=== PATIENT | male | born 1975 | race Caucasian/White ===

== ENCOUNTER 2024-04-17 16:03 | Outpatient (CLI) | payer OTHER, SELFPAY ==
--- NOTE | ~2024-04-17 | XR_ITS ---
EXAMINATION: XR tibia fibula RT 2V DATE: 04/17/2024 16:23 INDICATION: Anterior right lower leg pain TECHNIQUE: AP and lateral views of the right tibia and fibula were obtained. COMPARISON: None. FINDINGS: Bone alignment is normal. No fracture. No cortical erosions or periosteal reaction. Profiled joint sp aces are normal. No ankle joint effusion. Soft tissues are unremarkable. IMPRESSION: 1. Negative right tibia/fibula radiographs. Reviewed, dictated and finalized at location B.
== END 2024-04-17 16:04 | disposition home or self-care (01) ==
LOC: CHSIMG 16:09
PROVIDERS: PCP Family Medicine; Visit Provider Family Medicine
DX: M79.604 Pain in right leg (principal)
CPT/HCPCS: 73590

== ENCOUNTER 2025-01-14 15:50 | Outpatient (RCR) | payer OTHER, SELFPAY ==
--- NOTE | 2025-01-14 17:14 | OPREHPOC ---
Outpatient Therapy Plan of Care This is a Multidisciplinary Plan of Care that may contain components documented by all disciplines (PT, OT, and ST.) PT Problem 1 PT Problem #1 Knowledge Deficit PT Goal 1 Goal / Goal Update Independent and complaint with HEP addressing R shoulder ROM and strength per protocol. Target Visit 2 PT Problem 2 PT Problem #2 Pain PT Goal 1 Goal / Goal Update Pt to report 0/10 pain at rest. Pt to report 4/10 pain at worst with movement. Target Visit 12 PT Problem 3 PT Problem #3 Impaired Range of Motion PT Goal 1 Goal / Goal Update Pt to reach full R shoulder PROM. Pt to reach 150 deg active R shoulder flexion without pain. Pt to reach 150 deg active R shoulder abduction without pain. Pt to reach behind the back to lumbar spine without pain. Target Visit 12 PT Problem 4 PT Problem #4 Impaired Strength PT Goal 1 Goal / Goal Update Pt to improve gross R shoulder strength to 4/5 or better to return to work full duty. Target Visit 12 PT Problem 5 PT Problem #5 Impaired Functional Mobility PT Goal 1 Goal / Goal Update Pt to report 20% or less perceived disability on Quick DASH. Pt to be able to fasten a belt without R shoulder pain. Target Visit 12
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
--- NOTE | 2025-01-19 18:02 | PCPTNOTE ---
On 01/19/25, the student, [Soraya Yang], provided care and completed [facility] documentation on this patient. I have reviewed the student's documentation and agree with the findings.
--- NOTE | 2025-02-15 18:04 | OPREHPOC ---
Outpatient Therapy Plan of Care This is a Multidisciplinary Plan of Care that may contain components documented by all disciplines (PT, OT, and ST.) PT Problem 1 PT Problem #1 Knowledge Deficit PT Goal 1 Goal / Goal Update Independent and complaint with HEP addressing R shoulder ROM and strength per protocol. Target Visit 2 Progress Met PT Problem 2 PT Problem #2 Pain PT Goal 1 Goal / Goal Update Pt to report 0/10 pain at rest. Pt to report 4/10 pain at worst with movement. Target Visit 12 Progress Met PT Problem 3 PT Problem #3 Impaired Range of Motion PT Goal 1 Goal / Goal Update Pt to reach full R shoulder PROM. -met Pt to reach 150 deg active R shoulder flexion without pain. -met Pt to reach 150 deg active R shoulder abduction without pain. -not met Pt to reach behind the back to lumbar spine without pain. -met Target Visit 12 Progress Partially Met PT Problem 4 PT Problem #4 Impaired Strength PT Goal 1 Goal / Goal Update Pt to improve gross R shoulder strength to 4/5 or better to return to work full duty. Target Visit 12 Progress Met PT Goal 2 Goal / Goal Update Pt to improve gross R shoulder strength to 5/5 without pain for safe return to work. Target Visit 20 PT Problem 5 PT Problem #5 Impaired Functional Mobility PT Goal 1 Goal / Goal Update Pt to report 20% or less perceived disability on Quick DASH. -met Pt to be able to fasten a belt without R shoulder pain. -met Target Visit 12 Progress Met
--- NOTE | 2025-02-15 18:04 | PTOPPROG ---
Assessment and note entered by Yuko Chu, PT Evaluation Information Assessment Status Progress ICD-10 Condition Codes (PT) Pain in right shoulder M25.511 Other ICD-10 Condition Codes ( S42.101D PT) Onset 12/06/24 Subjective Information Pt reports his shoulder has continued to get better with therapy. He reports he's pain-free most of the time but occasionally has 2/10 pain with new or unexpected movements. He reports he went fishing over the weekend and that reeling in his line was causing him some pain. He no longer has pain with putting on seatbelts. He goes back to see the doctor on Saturday. Assessment PT Clinical Summary Mr. Taylor has attended 10 skilled PT visits addressing R shoulder/scapular strength and ROM after scapula fracture. He has made good progress thus far in both his strength and ROM. He has met majority of his goals and new goals were added today addressing improved shoulder strength for safe return to full duty at work. He is currently under a 10lb wt restriction and returns to his doctor on Saturday. He will continue to benefit from skilled PT intervention to make further progress in his shoulder strength to stabilize the shoulder for functional and occupational activities. Plan of Care Interventions Electrical Stimulation,Hot Pack/Cold Pack,Manual Therapy,Neuro Re-education,Patient/Caregiver Education,Therapeutic Activities,Therapeutic Exercise,Self-Care/Home Management Other Interventions TPDN PT Services Indicated Yes Treatment Frequency and 2x/week for 10 visits (20 total) Duration These treatments will address the objective and functional deficits as defined above. The patient will be advanced safely and appropriately in order for the patient to progress towards his/her prior level of function. Additional exercises will be introduced and as well as a comprehensive home exercise program upon discharge, if needed, ?to ensure carryover of functional gains achieved in the clinic. This treatment plan has been reviewed and agreement upon by the patient.
--- NOTE | 2025-03-18 17:40 | OPREHPOC ---
Outpatient Therapy Plan of Care This is a Multidisciplinary Plan of Care that may contain components documented by all disciplines (PT, OT, and ST.) PT Problem 1 PT Problem #1 Knowledge Deficit PT Goal 1 Goal / Goal Update Independent and complaint with HEP addressing R shoulder ROM and strength per protocol. Target Visit 2 Progress Met PT Problem 2 PT Problem #2 Pain PT Goal 1 Goal / Goal Update Pt to report 0/10 pain at rest. Pt to report 4/10 pain at worst with movement. Target Visit 12 Progress Met PT Problem 3 PT Problem #3 Impaired Range of Motion PT Goal 1 Goal / Goal Update Pt to reach full R shoulder PROM. -met Pt to reach 150 deg active R shoulder flexion without pain. -met Pt to reach 150 deg active R shoulder abduction without pain. -met Pt to reach behind the back to lumbar spine without pain. -met Target Visit 12 Progress Met PT Problem 4 PT Problem #4 Impaired Strength PT Goal 1 Goal / Goal Update Pt to improve gross R shoulder strength to 4/5 or better to return to work full duty. Target Visit 12 Progress Met PT Goal 2 Goal / Goal Update Pt to improve gross R shoulder strength to 5/5 without pain for safe return to work. Target Visit 20 Progress Met PT Problem 5 PT Problem #5 Impaired Functional Mobility PT Goal 1 Goal / Goal Update Pt to report 20% or less perceived disability on Quick DASH. -met Pt to be able to fasten a belt without R shoulder pain. -met Target Visit 12 Progress Met
--- NOTE | 2025-03-18 17:40 | PTOPDC ---
Assessment and note entered by Lourdes Glass, PT Evaluation Information Assessment Status Discharge ICD-10 Condition Codes (PT) Pain in right shoulder M25.511 Other ICD-10 Condition Codes ( S42.101D PT) Onset 12/06/24 Subjective Information Juanjose reports his right shoulder is doing well. He has no pain in the right shoulder unless he takes it all the way overhead and leaves it there for a bit. He notes pain is only a 1/10 at that time. He has been working modified duty with restrictions of lifting 35# or less without difficulty. He will see his physician on 03/19/25 and thinks he will be released for full duty work. Reported Pain Level Pain Score 0: Self Report Assessment PT Clinical Summary Juanjose Taylor has attended 18 skilled PT visits addressing R shoulder/scapular strength and ROM after scapula fracture. He reports he is no longer having right shoulder pain except when he leaves his arm overhead for several minutes. He has been working modified duty with lifting restrictions of 35# without difficulty. He demonstrates full right shoulder PROM and functional right shoulder AROM in all planes. He also demonstrates full right shoulder strength and was able to lift 35# from floor to waist and waist to shoulder without pain as well as 10# overhead. He has met all goals . He will see his referring physician on 03/19/25. We are recommending discharge from skilled PT. Plan of Care PT Services Indicated No
== END 2025-03-18 20:00 | disposition home or self-care (01) ==
LOC: CHSPT 15:50
DX: S42.101D Fracture of unspecified part of scapula, right shoulder, subsequent encounter for fracture with routine healing (principal); M25.511 Pain in right shoulder
CPT/HCPCS: 97110; 97112; 97161; 97530; 97750

== ENCOUNTER 2025-04-28 15:28 | Outpatient (CLI) | payer OTHER, SELFPAY ==
--- NOTE | ~2025-04-28 | XR_ITS ---
EXAMINATION: XR ankle LT min 3V, 04/28/2025 15:40 CDT HISTORY: PAIN IN L ANKLE, LEG AND JOINTS COMPARISON: No comparisons available. Findings: Remote corticated fractures medial malleolus, no acute fracture is identified No significant degenerative changes. Soft tissues unremarkable. Impression: No acute fracture or malalignment. Reviewed, dictated and finalized at location P. Impression: No acute fracture or malalignment.
--- NOTE | ~2025-04-28 | XR_ITS ---
Corrected Report Corrected from RT to LT See bold title change. 05/07/2025 SAHUNNA/SJ This report was recreated on 05/07/2025. Original report was signed by Carroll Richardson M.D. on 04/28/2025 16:03 CDT XR tibia fibula LT 2V EXAMINATION: XR tibia fibula RT 2V, 04/28/2025 15:40 CDT HISTORY: PAIN IN L ANKLE, LEG AND JOINTS COMPARISON: No comparisons available. Findings: Nondisplaced fracture of the proximal fibula. No significant degenerative changes. Soft tissues unremarkable. Impression: Proximal fibular fracture Reviewed, dictated and finalized at location P. Impression: Proximal fibular fracture
--- OUTSIDE RECORDS SUMMARY | 2025-04-28 15:31 | XMS_ITS | Clinical Summary ---
Author Organization [facility] Address [facility] [place] [address] Care Team Providers Care Nuclear Scientist Name Role Phone Nicole Way [facility] Primary Care Provider [phone] Allergies No known active allergies Medications ranitidine 150 MG tablet Take 150 mg by mouth 2 (two) times daily. Active HYDROcodone-acet aminophen 5-325 MG tabletIndication s:Acute Pain < 3 Day Supply Take 1 tablet by mouth every 6 (six) hours as needed for Pain. Indications : Acute Pain < 3 Day Supply 12 tablet 02/27/2021 Active Active Problems Problem Noted Date Diagnosed Date Nausea 09/25/2018 Heartburn 09/25/2018 Cough 09/23/2018 Overview (09/23/2018): PCP prescribed Azithromycin, encouraged cessation of vaping, use of OTC cough suppressant as needed, and return to office is symptom worsen or persist Nodule of soft tissue 09/23/2018 Weight loss, unintentional 09/23/2018 Body mass index (BMI) 24.0-24.9, adult 9 Resolved Problems Problem Noted Date Diagnosed Date Resolved Date Intermittent diarrhea 09/23/20182018 Overview (09/23/2018): PCP ordered stool culture and supplies given to patient for collection Immunizations Immunization Administration Dates Next Due Tdap (Boostrix) 02/27/2021 Family History Medical History Relation Comments Colon Cancer Paternal Grandmother Relation Status Comments Paternal Grandmother Social History Tobacco Use Types Packs/Day Years Used Date Smoking Tobacco: Former Cigarettes Comments:previously smoked 1 0 cig per day - stopped one month ago 09/25/18 and uses jewel Alcohol Use Standard Drinks/Week Comments Yes 0 (1 standard drink = 0.6 oz pur e alcohol) occassional Sex and Gender Information Value Date Recorded Sex Assigned at Male 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 Legal Sex Male 5:44 PM [employer] Gender Identity Male 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 [employer] Sexual Orientation Not on file Last Filed Vital Signs Vital Sign Reading Time Taken Comments Blood Pressure 110/77 02/27/2021 9:24 PM CDT Pulse 60 02/27/2021 9:24 PM CDT Temperature 36.6 C (97.9 F) 02/27/2021 4:48 PM CDT Respiratory Rate 16 02/27/2021 9:24 PM CDT Oxygen Saturation 95% 02/27/2021 9:24 PM CDT Inhaled Oxygen Concentration - - Weight 73.6 kg (162 lb 4.1 oz) 02/27/2021 4:48 P M CDT Height 175.3 cm (5' 9) 02/27/2021 4:48 PM CDT Body Mass Index 23.96 02/27/2021 4:48 PM CDT Plan of Treatment Health Maintenance Due Date Last Done Comments Colorectal Cancer Screening Colonoscopy (10 Years) 1977 Annual Physical 02/22/1980 Hepatitis C 1995 Hepatitis B Vaccines (1 of 3 - 19+ 3-dose series) 02/22/1996 COVID-19 Vaccine (2024-2 6 season) 2025 07/17/2022, 05/03/2022, 11/16/2021 DTaP, Tdap and Td Vaccines ( 2 - Td or Tdap) 02/27/2031 02/27/2021 Meningococcal B Vaccine Aged Out No l onger eligible based on patient's age to complete this topic Meningococcal Vaccine Aged Out No bonnie kendell eligible based on patient's age to complete this topic Pneumococcal Vaccine: Pediatrics (0 to 5 Years) and At-Risk Patients (6 to 49 Years) Aged Out No longer eligible b ased on patient's age to complete this topic RSV Immunizations Under 20 Months Aged Out No longer eligible b ased on patient's age to complete this topic Insurance MEDICAID [facility] Care Teams Nuclear Scientist Relationship Specialty Start Date End Date Nicole Way FNP-BC [address] [place] [address] PCP - General NURSE PRACTITIONER 09/23/18
--- OUTSIDE RECORDS SUMMARY | 2025-04-28 15:31 | XMS_ITS | Clinical Summary ---
Author Organization [facility] Care Team Providers Care [employer] Decorator Name Role Phone Maverick Joyner MD Primary Care Provide r Allergies No known active allergies Medications acetaminophen 500 mg capsuleIndicati ons:Pain Take 2 capsules (1,000 mg total) by mouth every 6 (six) hours 60 tablet 5 Active Additional Information Patient not taking.Reported on 01/08/2025 levETIRAcetam (KEPPRA) 500 mg tablet Take 1 tablet (500 mg total) by mouth 2 (two) times a day for 4 days 8 tablet 5 Active Additional Information Patient not taking.Reported on 01/08/2025 buPROPion XL (WELLBUTRIN XL) 300 mg 24 hr tablet Take 1 tablet (300 mg total) by mouth daily 30 tablet 11 5 12/11/19 26 Active risperiDONE (RisperDAL) 2 mg tablet Take 1 tablet (2 mg total) by mouth daily 5 Active traZODone (DESYREL) 50 mg tablet Take by mouth nightly 5 Active Active Problems Problem Noted Date Diagnosed Date Fracture of right zygomatic arch 12/07/2024 Assessment & Plan (12/07/2024 6:56 PM CDT): - CT head (12/07): Nondisplaced acute right zygoma fracture. - ENT consult - no acute intervention - patient can follow up if he has further concern, can [phone] to make an appointment Discharge planning issues 12/06/2024 Assessment & Plan (12/09/2024 12:17 PM CDT): 12/06 Admitted 12/07: awaiting BI consult, PO pain control 12/08: awaiting PO pain control 12/09 Patient is medically stable for discharge, SW/CM updated. Discharge pending nothing, patient discharging home today Acute pain 12/06/2024 Assessment & Plan (12/08/2024 9:46 AM CDT): - Tylenol 1g q6h - Increased Robaxin 1000mg QID - Gabapentin 300mg TID - Increased Oxycodone 7.5mg q4h PRN TBI (traumatic brain injury) 12/06/2024 Assessment & Plan (12/07/2024 10:03 AM CDT): #ASSISTED with LOC - BI consult Rib fractures 12/06/2024 Assessment & Plan (12/08/2024 9:47 AM CDT): #R 2nd-8th rib fx #small R hemothorax - pulling 2.5L on IS - Aggressive pulmonary hygiene: elevate HOB, ISx10/hr while awake, duonebs, OOB as able - MMPR: APAP, gabapentin, anti-spasmodic, lidocaine patches to most painful area - chest xr (12/07): Interval development of linear left retrocardiac opacification, likely representing atelectasis versus aspiration. No definite pleural effusion or pneumothorax - chest xr (12/08): discoid atelectasis in the left lung base. There are trace bilateral pleural effusions. No pneumothorax. Fracture of right scapula 12/06/2024 Assessment & Plan (12/07/2024 9:53 AM CDT): #R scapular body fx - ortho consult - non-operative management - CCWB RUE - Ancef for open wounds - PT/OT Traumatic subarachnoid hemor rhage with loss of consciousness of 30 minutes or less, initial encounter 12/06/2024 Subarachnoid hemorrhage 12/06/2024 Assessment & Plan (12/07/2024 9:57 AM CDT): #R subarachnoid overlying the L superior parietal lobe - NSGY consult - Q4h neurochecks - Repeat CT Head (12/07): Evolving small subarachnoid hemorrhage lobe the left parietal lobe, slightly decreased in volume. - Keppra 500 BID x7days (12/07-12/14) - SBP<160 - BI consult, PM&R consult Follow-up with our outpatient clinic in 4 weeks. (Adult neurosurgery outpatient clinic phone number: [phone]) Abrasion 12/06/2024 Assessment & Plan (12/06/2024 9:12 PM CDT): #abrasions to the right shoulder, right elbow - clean and dress with Baci, adaptic, gauze - daily dressing change Elbow laceration, left, initial encounter 2024 Assessment & Plan (12/06/2024 9:12 PM CDT): #Left elbow laceration - XR and CT of the elbow done, no evidence of traumatic arthrotomy Depression 12/06/2024 Assessment & Plan (12/06/2024 10:03 PM CDT): - c/w home risperidone 2mg daily, wellbutrin 300mg daily per patient Heartburn 09/25/2018 Nausea 09/25/2018 Cough 09/23/2018 Overview (12/16/2024): PCP prescribed Azithromycin, encouraged cessation of vaping, use of OTC cough suppressant as needed, and return to office is symptom worsen or persist Nodule of soft tissue 09/23/2018 Weight loss, unintentional 09/23/2018 Encounters Date Type Department Care Team Description 03/23/2025 3:00 PM CDT Office Visit [facility] Medicine Orthopaedic Surgery [facility] [address] [place] [address] [place] [address] Tre Erickson MD Closed fracture of right scapula with routine healing, unspecified part of scapula, subsequent encounter (Primary Dx) 02/23/2025 11:50 AM CDT Office Visit [facility] Medicine Orthopaedic Surgery [facility] [address] [place] [address] [place] [id number] Tre Erickson MD Acute pain of right shoulder (Primary Dx); Closed fracture of right scapula with routine healing, unspecified part of scapula, subsequent encounter 02/23/2025 11:13 AM CDT - 02/23/2025 11:59 PM CDT Hospital Encounter [facility] [place] [address] Acute pain of right shoulder; Closed fracture of right scapula with routine healing, unspecified part of scapula, subsequent encounter Discharge Disposition: Discharge to home or self care from Last 3 Months Immunizations Immunization Administration Dates Next Due Tdap 12/06/2024 Surgical History Surgery Date Site/Laterality Comments FLUORO GUIDED INJECTION SHOULDER RIGHT 01/25/2025 Ri ght Social History Tobacco Use Types Packs/Day Years Used Date Smoking Tobacco: Never Smokeless Tobacco: Never Tobacco Cessation:Counseling Given: Not Answered Hunger Vital Sign Answer Date Recorded Within the past 12 months, y ou worried that your food would run out before you got the money to buy more. Never true 01/09/20 25 Within the past 12 months, t he food you bought just didn't last and you didn't have money to get more. Never true 01/08/2025 Personal Safety Answer Date Recorded Have you ever been in or are you currently in a harmful physical or emotional relationship or is someone making you feel afraid or unsafe? Denies 12/06/2024 Sex and Gender Information Value Date Recorded Sex Assigned at Not on file Legal Sex Male 9:51 AM [employer] Gender Identity Not on file Sexual Orientation Not on file Obstetrics History Last Filed Vital Signs Vital Sign Reading Time Taken Comments Blood Pressure 110/74 01/25/2025 9:40 AM CDT Pulse 61 01/25/2025 9:40 AM CDT Temperature 35.7 C (96.2 F) 01/08/2025 11:29 AM CDT Respiratory Rate 20 01/25/2025 9:40 AM CDT Oxygen Saturation 95% 01/08/2025 11:29 AM CDT Inhaled Oxygen Concentration - - Weight 88.7 kg (195 lb 8 oz) 01/08/2025 11:29 AM CDT Height 170.2 cm (5' 7) 01/08/2025 11:29 AM CDT Body Mass Index 30.62 01/08/2025 11:29 AM CDT Plan of Treatment Health Maintenance Due Date Last Done Comments Colon Cancer Screening-Colonoscopy 1977 Depression Screening 1977 Hepatitis C Screening 1977 Hepatitis B Screening 1995 Regular Well Visit/Exam 18-64 1995 Influenza Vaccine (#1) 2025 DTaP/Tdap/Td Vaccine (3 - Td or Tdap) 12/06/2034 12/06/2024, 02/27/2021 Pneumococcal vaccine <65 Aged Out No longer eligible based on patient's age to complete this topic Procedures Procedure Name Priority Date/Time Associated Diagnosis Comments XR SHOULDER RIGHT 2 OR MORE VIEWS Schedule Routine, Read Routine (OP Routine) 02/23/2025 11:23 AM CDT Acute pain of right shoulder Closed fracture of right scapula with routine healing, unspecified part of scapula, subsequent encounter from Last 3 Months Results * XR Shoulder Right 2 or More Views (02/23/2025 11:23 AM CDT) Anatomical Region Laterality Modality Upper Extremities, Shoulder Right Comp uted Radiography 02/23/2025 1:00 PM CDT Impressions 02/23/2025 1:00 PM CDT Healing right scapular body fracture. Electronically signed by: Ryan Lagos M.D. Narrative 02/23/2025 1:00 PM CDT XR SHOULDER RIGHT 2 OR MORE VIEWS HISTORY: Right shoulder pain. FINDINGS: 3 views of the right shoulder are obtained and compared with 01/07/2025. There is redemonstrated healing right scapular body fracture. There is no acute fracture. The joint spaces are preserved. Alignment and soft tissues are normal. Procedure Note Ryan Lagos MD - 02/23/2025 XR SHOULDER RIGHT 2 OR MORE VIEWS HISTORY: Right shoulder pain. FINDINGS: 3 views of the right shoulder are obtained and compared with 01/07/2025. There is redemonstrated healing right scapular body fracture. There is no acute fracture. The joint spaces are preserved. Alignment and soft tissues are normal. IMPRESSION: Healing right scapular body fracture. Electronically signed by: Ryan Lagos M.D. us Tre Erickson MD IMG XR PROCEDURES Final R esult from Last 3 Months Insurance CHOICE PLUS CHOICE PLUS * Guarantor: [facility] Account Type Relation to Patient Date of Phone Billing Address Donor Other Advance Directives For more information, please contact: [phone] * Full Code (Latest Code Status on File) Date Activated Date Inactivated Comments 12/06/2024 8:40 PM 12/09/2024 7:52 PM Care Teams [employer] Decorator Relationship Specialty Start Date End Date Maverick Joyner MD [address] [place] [address] PCP - General Family Medicine 12/08/24
== END 2025-04-28 15:29 | disposition home or self-care (01) ==
LOC: CHSIMG 15:29
PROVIDERS: PCP Family Medicine; Visit Provider Family Medicine
DX: M25.572 Pain in left ankle and joints of left foot (principal); M79.605 Pain in left leg; S82.832A Other fracture of upper and lower end of left fibula, initial encounter for closed fracture
CPT/HCPCS: 73590; 73610